=== PATIENT | female | born 1995 | race Caucasian/White ===

== ENCOUNTER 2016-09-14 10:37 | Emergency (ER) | payer MEDICAID ==
[2016-09-14 10:52] VITALS: BP 116/74
--- OUTSIDE RECORDS SUMMARY | 2016-09-14 11:09 | XMS REPORT | Continuity of Care Document ---
:1995 Author Organization [facility] ([facility]) [place] [address] Phone [phone] Care Team Providers Name Role Phone Emanuel Echols Primary Care Provider [phone] Source Comments This disclosure is being made pursuant to the Care Everywhere program, applicable federal and state laws, and may not contain all informaitonavailable regarding this patient.[facility] ([facility]) Active Allergies and Adverse Reactions No Active Allergies Current Medications Not on file Active Problems Not on file Social History Tobacco Use Types Packs/Day Years Used Date Never Assessed Last Filed Vital Signs Vital Sign Reading Time Taken Blood Pressure 123/67 12/22/2003 8:12 AM CDT Pulse 93 12/22/2003 8:12 AM CDT Temperature 36.4 C (97.52 F) 12/22/2003 8:12 AM CDT Respiratory Rate - - Height 1.235 m (4' 0.62") 12/22/2003 8:12 AM CDT Weight 32.496 kg (71 lb 10.2 oz) 12/22/2003 8:12 AM CDT Body Mass Index 21.31 12/22/2003 8:12 AM CDT Oxygen Saturation - - Plan of Care Health Maintenance Due Date Last Done Comments Hepatitis B Vaccine (1 of 3 - Primary Series) 1995 HPV Vaccine (1 of 3 - Female/Unknown 3 Dose Series) 2006 Tdap Vaccine 2006 Meningococcal Vaccine (1 of 1) 2011 Cervical Cancer Screening 2013 Lipid Disorder Screening 2013 MMR Vaccine 2013 Td Vaccine 2013 Varicella Vaccine (1 of 2 - Adult - No Evidence of 2013 Immunity) Influenza Vaccine: Seasonal (#1) 03/07/2016 Results from Last 3 Months Not on file
--- NOTE | 2016-09-14 11:13 | ERNOTE ---
Medical Problem HPI - Narrative Date of Service: 09/14/16 - General Chief Complaint: OB Screening Time Seen by Provider: 09/14/16 10:59 Source: patient, RN notes reviewed, old records Exam Limitations: no limitations - Immun/Allergies/Home Medications Immunizations: IMMUNIZATION HX Immunizations Up to Date Yes Allergies/Adverse Reactions: Allergies Sulfa (Sulfonamide Antibiotics) [Sulfa(Sulfonamide Antibiotics)] Allergy ( Verified 09/14/16 10:51) Home Medications: HOME MEDICATIONS NK [No Home Medication] 09/14/16 [Last Taken Unknown] - History of Present History Narrative: 21 y/o female patient of Dr. Perera ambulatory to the ED for related concerns. She reports that she has not been feeling the baby move for the past 2 weeks. She was seen for a visit on 09/08/16 and reported no concerns at that time. She did not contact her OB before coming here. She denies any other associated symptoms. Her FHT's were 162 in triage. Review of Systems - Review of Systems Constitutional: Absent: recent illness, fever, malaise EYE: Present: no symptoms reported ENT: Present: no symptoms reported Respiratory: Absent: shortness of breath, cough Cardiology: Absent: chest pain, syncope Gastrointestinal/Abdominal: Absent: vomiting, diarrhea, abdominal pain Genitourinary: Absent: discharge, other - vaginal bleeding Musculoskeletal: Present: no symptoms reported Skin: Present: no symptoms reported Neurological: Absent: headache, dizziness/light-headedness Endocrine: Present: no symptoms reported Hematologic/Lymphatic: Present: no symptoms reported Psych: Present: anxiety, depressed - Patient's Past Medical History Patient History - Medical: Bipolar Patient History - Cardiac/Respiratory: No pertinent hx Patient History - Cancer: No Hx of Cancer Patient History - Surgical Procedures: , Ear Tubes Patient History - Other: None LMP (females 10-50): LMP (Calendar): 05/10/16 - Social History Living Situations: home Psych History: Hx of Bipolar Disorder Does anyone smoke in the home?: No Smoking Status: Never smoker Have you smoked in the past 12 months: No Alcohol Use: none Drug Use: none - Immunizations Immunizations Up to Date: Yes Physical Exam - Physical Exam General Appearance: Present: wd/wn, alert, no apparent distress, obese, other - bizarre appearance Eye Exam: Normal inspection: bilateral Respiratory: Present: no respiratory distress, no accessory muscle use Extremity Exam: Present: normal inspection, no edema Neurological Exam: Present: alert, oriented, normal mood/affect Skin Exam: Present: normal color ED Progress - Vital Signs Patient's Vital Signs:: I have reviewed the patient's vital signs. Vital Signs: Vital Signs 09/14/16 09/14/16 10:44 10:59 Temperature 36 C L 36 C L Pulse Rate 81 81 Respiratory 12 12 Rate Blood Pressure 116/74 116/74 O2 Sat by Pulse 98 98 Oximetry - Progress/Reassessment Chief Complaint: OB Screening Progress:: Unchanged Plan - Plan Plan: Patient does not have any symptoms warranting further ED evaluation. Instructed to contact her OB about any related problems before coming to the ED. Departure - Departure Clinical Impression: Concern about complication without diagnosis Disposition: Home Follow Up Needed Condition: Stable Instructions: Second Trimester of , [id number] Additional Instructions: Contact Dr. Perera regarding your concerns Referrals: Zhang Perera DO [Staff Physician] -
== END 2016-09-14 11:06 | disposition home or self-care (01) ==
LOC: ER 10:37
DX: Z71.1 Person with feared health complaint in whom no diagnosis is made (principal); Z33.1 Pregnant state, incidental

== ENCOUNTER 2017-02-08 04:14 | Inpatient (IN) | payer MEDICAID ==
[2017-02-08] MEDS ORDERED: ceFAZolin SODIUM/DEXTROSE,ISO 2 GM/50 ML BAG IV ONE (05:26)
[2017-02-08] MEDS ORDERED: OXYTOCIN 20 UNITS in RINGERS SOLUTION,LACTATED 1,000 ML IV ONE (05:26)
[2017-02-08] MEDS: RINGERS SOLUTION,LACTATED 1,000 ML IV PRN ×2 (05:52→07:55)
[2017-02-08 06:04] LABS: Cocaine Ur Negative (NEGATIVE); Urine Barbiturate Negative (NEGATIVE); Urine Benzodiazepines Negative (NEGATIVE); Urine Opiates Negative (NEGATIVE); Urine PCP Negative (NEGATIVE); Urine THC Negative (NEGATIVE)
[2017-02-08 06:11] LABS: Hematocrit 33.7 % (37.0-47.0); Hemoglobin 11.5 gm/dL (12.5-16.0); Mean Cell Volume 81.6 fl (78-100); Mean Corpuscular Hemoglobin 27.8 pg (27-31); Mean Corpuscular Hgb Conc 34.1 g/dl (32-36); Neutrophil # 6.9 K/mm3 (1.3-6.0); Neutrophil % 64.6 % (42-75.0); Platelet Count 215 K/mm3 (150-450); Red Blood Count 4.13 M/mm3 (4.2-5.4); White Blood Count 10.7 K/mm3 (4.0-10.5)
[2017-02-08] MEDS ORDERED: SENNOSIDES 8.6 MG TABLET PO PRN (09:45)
[2017-02-08] MEDS ORDERED: RINGERS SOLUTION,LACTATED 1,000 ML IV ONE (09:45)
[2017-02-08] MEDS ORDERED: ONDANSETRON HCL/PF 2 MG/ML VIAL IV PRN (09:45)
[2017-02-08] MEDS ORDERED: diphenhydrAMINE HCL 25 MG CAPSULE PO PRN (09:45)
[2017-02-08] MEDS ORDERED: SIMETHICONE 80 MG TAB.CHEW PO PRN (09:45)
[2017-02-08] MEDS ORDERED: HYDROcodone/ACETAMINOPHEN 1 EACH TABLET PO PRN (09:45)
[2017-02-08] MEDS ORDERED: BISACODYL 10 MG SUPP.RECT RC PRN (09:45)
[2017-02-08] MEDS ORDERED: PROMETHAZINE HCL 12.5 MG in DEXTROSE 5 % IN WATER 50 ML IV PRN ×2 (09:45)
--- NOTE | 2017-02-08 09:45 | OR ---
Operative Report - Dictated Report Narrative: DATE OF PROCEDURE: 02/08/2017 PROCEDURE: 1. Repeat low transverse section ANESTHESIA: Spinal. PREOPERATIVE DIAGNOSES: 1. Intrauterine at 39 1/7 weeks 2. Previous c-sections x 1 POSTOPERATIVE DIAGNOSES: 1. Intrauterine at 39 1/7 weeks 2. Previous c-sections x 1 SURGEON: Perla Spencer M.D. DIRECTOR CORPORATE SALES: Nimisha Mcdonald FINDINGS: 1. Male infant in cephalic presentation. clear amniotic fluid. Weight 2389 g, 8/9, Time of delivery: 08:48 2. Normal uterus, and normal bilateral ovaries and tubes 3. There was some omentum adhesion to the right side of the peritoneal incision. SPECIMENS: placenta DRAIN: Hoffman to gravity. URINE OUTPUT: 150 ml. BLOOD LOSS: 200 ml. IV FLUIDS: 2000 ml COMPLICATIONS: None. Description of Operative Procedure: The patient consented prior to the operation and was taken to the operating room. Spinal anesthesia was performed without complications. The patient was then placed in the dorsal supine position with leftward tilt. Sequential compression device was placed on the lower extremities and a Hoffman catheter was placed into the bladder using sterile technique. Two grams of Ancef was given prior to the start of anesthesia. The abdomen was prepped with Chloraprep and draped in the usual sterile fashion. A time-out procedure was conducted to confirm the correct patient for the correct procedure. Anesthesia was tested and appeared adequate. A Pfannenstiel incision was marked slightly above her prior scar and then made with a scalpel. The incision was carried through the subcutaneous layer to the fascia. The fascia was nicked at the midline and extended laterally with Johnson scissors. The upper edge of the fascia incision was grasped with two Saw clamps, elevated, and the underlying rectus muscles were dissected off. The Saw clamps were repositioned to the lower edge of the fascia incision, which was tented up and dissected off from the rectus muscles. The rectus muscles were held up with Allis clamps and the midline between the rectus muscles was dissected sharply with the scalpel. The peritoneum was entered sharply with a scalpel. The peritoneal incision was extended superiorly and inferiorly with good visualization of the bladder. There was some omentum adhesion to the right side of the peritoneal incision. This was left alone as it was not interfering with the procedure. A bladder blade was inserted. The vesicouterine peritoneum was identified, grasped with a smooth pick-ups, and entered sharply with Matzenbaum scissors. The incision was extended laterally, and a bladder flap was created. The bladder blade was repositioned. The lower uterine segment was incised in a transverse fashion with the scalpel. The incision was extended laterally by stretching. The bladder blade was removed. The amniotic sac was ruptured with clear fluid. The baby was in cephalic presentation. The head was elevated through the incision. Fundal pressure was applied and the baby was delivered atraumatically. Baby cried immediately after . The cord was clamped and cut. The baby was handed off to the right of way agent and nurse in attendance. Cord blood was obtained. The placenta was removed manually. The uterus was exteriorized, and cleared off clots and membrane. The uterine incision was closed with 0 vicryl in a running-lock fashion. A second imbricating layer was placed with 2-0 Vicryl in a continuous non-lock fashion. Good hemostasis and reapproximation were obtained. The posterior cul-de-sac was cleared off clots and fluid. The uterus was returned to the abdomen. The gutters were cleared of blood clots and fluid. The peritoneum was closed with 2-0 Vicryl. The rectus muscle was inspected and found hemostatic. The fascia was reapproximated with #1 Vicryl in running fashion. The subcutaneous layer was irrigated with saline. The subcutaneous layer was closed with 2-0 vicryl interruptedly. The skin was closed with 3-0 Monocryl suture in a subcuticular fashion. Benzoin was applied to the incision edges. The incision was covered with Steri strips, Telfa, ABD and adhesive pressure dressing tape. The patient tolerated the procedure well. Sponge, lap, needle and instrument counts were correct x 2. The patient received an abdominal tap block under u/s guidance by anesthesia for postop pain management. The patient was taken to the recovery room in stable condition. Perla Spencer MD History for MU Definition: * The number of deliveries resulting in a live the patient experienced prior to current hospitalization * The previous delivery of live twins or any live multiple gestation is considered one live event. *If primagravida or nulliparous is documented select zero for the number of previous live births. Live Events: 1
[2017-02-08] MEDS: IBUPROFEN 800 MG TABLET PO PRN ×2 (12:18→18:42)
[2017-02-08] MEDS: HYDROcodone/ACETAMINOPHEN 1 EACH TABLET PO PRN ×4 (12:19→21:42)
[2017-02-08] MEDS: DOCUSATE SODIUM 100 MG CAPSULE PO SCH (20:54)
[2017-02-09] MEDS: HYDROcodone/ACETAMINOPHEN 1 EACH TABLET PO PRN ×2 (03:22→11:13)
[2017-02-09] MEDS: IBUPROFEN 800 MG TABLET PO PRN ×2 (03:23→11:13)
[2017-02-09 06:16] LABS: Hematocrit 29.1 % (37.0-47.0); Hemoglobin 9.7 gm/dL (12.5-16.0); Mean Cell Volume 83.1 fl (78-100); Mean Corpuscular Hemoglobin 27.7 pg (27-31); Mean Corpuscular Hgb Conc 33.3 g/dl (32-36); Mean Platelet Volume 9.7 fl (6.0-9.5); Neutrophil # 9.4 K/mm3 (1.3-6.0); Neutrophil % 79.1 % (42-75.0); Platelet Count 181 K/mm3 (150-450); Red Cell Distribution Width 14.4 % (11.5-14.0); White Blood Count 11.8 K/mm3 (4.0-10.5)
--- NOTE | 2017-02-09 08:49 | PN ---
Subjective - Date and Time Seen Date: 02/09/17 Subjective Narrative: post op day 1, s/p repeat c/s doing fine. izaguirre out and voided. ambulating and tolerating diet. bottle feeding. normal lochia. wants to be discharged today as baby will have to be transferred to [facility] for susptected bowel obstruction. Objective - Vitals Vitals: Last Vital Signs Temp 36.9 C 02/09/17 07:25 Pulse 84 02/09/17 07:25 Resp 18 02/09/17 07:25 BP 129/71 02/09/17 07:25 Pulse Ox 99 02/09/17 07:25 - Abnormal Lab Findings Abnormal Lab Findings: Abnormal Lab Results 02/09/17 Range/Units 06:13 WBC 11.8 H (4.0-10.5) K/mm3 RBC 3.50 L (4.2-5.4) M/mm3 Hgb 9.7 L (12.5-16.0) gm/dL Hct 29.1 L (37.0-47.0) % RDW 14.4 H (11.5-14.0) % MPV 9.7 H (6.0-9.5) fl Immature Gran % (Auto) 0.70 H (0.001-0.429) % Immature Gran # (Auto) 0.08 H (0.000-0.0310) K/mm3 Neutrophils % 79.1 H (42-75.0) % Lymphocytes % 14.5 L (20-51) % Neutrophils # 9.4 H (1.3-6.0) K/mm3 - Exam Constitutional: Present: Oriented x3, Cooperative Respiratory: Present: no respiratory distress Cardiovascular/Chest: Present: normal peripheral pulses Abdomen: Present: soft, nondistended, other - fundus firm at the umbilicus. Incision dry and clean. Extremity: Present: normal range of motion, no calf tenderness, pedal edema Eye contact: Present: cooperative, good eye contact, normal speech Cauti Physician Documentation - Urinary Catheter Management Urethral (Izaguirre) Date of Insertion: 02/08/17 Time of Insertion: 08:10 Date of Removal: 02/08/17 Time of Removal: 21:11 Assessment/Plan Plan Narrative: A: POD#1, s/p repeat c/s, stable and well. Plan: can be discharged home later today to go to [facility] with baby if remaining stable and well. discharge instructions given. Perla Spencer MD
[2017-02-09] MEDS: DOCUSATE SODIUM 100 MG CAPSULE PO SCH (11:15)
[2017-02-09 14:10] VITALS: BP 130/70
== END 2017-02-09 14:53 | disposition home or self-care (01) | DRG 766 ==
LOC: MS 04:14
PROVIDERS: ADMIT Obstetrics & Gynecology; ATTEND Obstetrics & Gynecology
PROC: 4A1HXCZ Monitoring of Products of Conception, Cardiac Rate, External Approach (ICD-10-PCS; 2017-02-08)
PROC: 10D00Z1 Extraction of Products of Conception, Low, Open Approach (ICD-10-PCS; principal; 2017-02-08 08:00)
DX: O82 Encounter for cesarean delivery without indication (principal); Z3A.39 39 weeks gestation of pregnancy; Z37.0 Single live birth

== ENCOUNTER 2018-09-18 05:20 | Inpatient (IN) ==
[2018-09-18] MEDS ORDERED: ceFAZolin SODIUM/DEXTROSE,ISO 2 GM/50 ML BAG IV ONE (05:29)
[2018-09-18] MEDS ORDERED: RINGER'S SOLUTION,LACTATED 1,000 ML IV PRN (05:29)
[2018-09-18] MEDS ORDERED: OXYTOCIN 20 UNITS in RINGER'S SOLUTION,LACTATED 1,000 ML IV ONE (05:29)
[2018-09-18 05:48] LABS: Hematocrit 35.1 % (37.0-47.0); Hemoglobin 11.6 gm/dL (12.5-16.0); Mean Corpuscular Hemoglobin 27.1 pg (27-31); Mean Platelet Volume 9.3 fl (8-12.5); Neutrophil # 6.5 K/mm3 (1.3-6.0); Neutrophil % 64.8 % (42-75.0); Platelet Count 263 K/mm3 (150-450); Red Blood Count 4.28 M/mm3 (4.2-5.4); Red Cell Distribution Width 13.6 % (11.5-14.0); White Blood Count 10.1 K/mm3 (4.0-10.5)
[2018-09-18 06:30] LABS: Cocaine Ur Negative (NEGATIVE); Urine Barbiturate Negative (NEGATIVE); Urine Benzodiazepines Negative (NEGATIVE); Urine Opiates Negative (NEGATIVE); Urine PCP Negative (NEGATIVE); Urine THC Negative (NEGATIVE)
[2018-09-18] MEDS: RINGER'S SOLUTION,LACTATED 1,000 ML IV PRN ×2 (07:00→09:57)
--- NOTE | 2018-09-18 07:11 | ANES ---
Anesthesia Pre Procedure Eval Vitals/Labs: Last Vital Signs Temp 37.1 C 09/18/18 06:38 Pulse 81 09/18/18 06:38 Resp 18 09/18/18 06:38 BP 122/73 09/18/18 06:38 Pulse Ox 98 09/18/18 06:38 HOME MEDICATIONS vitamin,calcium,rnpzqeha-fvur-vkaob acid tablet 1 tab PO DAILY 02/19/18 [Last Taken 09/17/18 08:00] Allergies/Adverse Reactions: Allergies Allergy/AdvReac Type Severity Reaction Status Date / Time Sulfa (Sulfonamide Allergy rash Verified 09/18/18 05:29 Antibiotics) [Sulfa(Sulfonamide Antibiotics)] - Planned Procedure Planned Procedure: Repeat Section poss abdominal scar revisi Medication List Reviewed:: Yes Allergies Verified: Yes Medical History (Last Reviewed 09/18/18 @ 07:10 by Kurt Rodriguez CRNA) depression (Acute) Onset Date: 10/31/12 Bipolar disorder (Acute) Onset Date: 06/01/13 Anemia affecting Onset Date: 05/2012 Chronic otitis externa Onset Date: Unknown Depression Drug overdose Onset Date: ~2010 Spontaneous Onset Date: 12/18/17 Surgical History (Last Reviewed 09/18/18 @ 07:10 by Kurt Rodriguez CRNA) History of myringotomy Onset Date: Unknown w/ tubes 7-8 sets of tubes Hx of section Onset Date: 07/16/12 NR FHTs, 2012, rpt 2016 Family History (Last Reviewed 09/18/18 @ 07:10 by Kurt Rodriguez CRNA) Mother Alive and well Uncle Lung cancer Bone cancer Aunt Breast cancer maternal great aunt Brother Muscular dystrophy - Family Anesthesia History Family History:: no untoward family reactions to anesthesia - Airway/Neck/Teeth Within Normal Limits:: Yes Teeth Condition: missing Neck Exam: full range of motion Mallampatti Score: 1 Thyromental (T-M) distance: > 6 cm Mandibulo Hyoid distance: > 3 cm - Respiratory Respiratory Physical: lungs clear Smoking Status: Never smoker Sleep Apnea currently treated: No Sleep Apnea by current assessment: No - Cardiovascular Tolerate Activity: Good Heart Sounds: S1 & S2, Regular - Anesthesia Assessment and Plan ASA Class: PS, II Anesthesia Type Plan: Spinal - Bilat TAP block for postop analgesia
--- NOTE | 2018-09-18 10:13 | OR ---
Operative Report - Dictated Report Narrative: DATE OF PROCEDURE: 09/18/2018 PROCEDURE: 1. Repeat low transverse section and lysis of adhesions (30 min) 2. Abdominal scar revision ANESTHESIA: Spinal. PREOPERATIVE DIAGNOSES: 1. Intrauterine at 39 3/7 weeks 2. Previous c-sections x 2 POSTOPERATIVE DIAGNOSES: 1. Intrauterine at 39 3/7 weeks 2. Previous c-sections x 2 3. Dense adhesions involving omentum to anterior abdominal wall and bladder to the lower uterine segment SURGEON: Perla Spnecer M.D. SOLID WASTE ENGINEER: Genesis Zuniga FINDINGS: 1. male in cephalic presentation. clear amniotic fluid. Weight pending 2642 g, 8/9, Time of delivery: 08:45 2. Normal uterus, and normal bilateral ovaries and tubes SPECIMENS: 1) placenta; 2) abdominal scar DRAIN: Hoffman to gravity. URINE OUTPUT: 100 ml. BLOOD LOSS: 400 ml. IV FLUIDS: 2200 ml COMPLICATIONS: None. Description of Operative Procedure: The patient consented prior to the operation and was taken to the operating room. Spinal anesthesia was performed without complications. The patient was then placed in the dorsal supine position with leftward tilt. Sequential compression device was placed on the lower extremities and a Hoffman catheter was placed into the bladder. Two grams of Ancef was given prior to the start of anesthesia. The abdomen was prepped with Chloraprep and draped in the usual sterile fashion. A time-out procedure was conducted to confirm the correct patient for the correct procedure. Anesthesia was tested and appeared adequate. The previous Pfannenstiel skin incision scar was removed with a scalpel. The incision was carried through the subcutaneous layer to the fascia. The fascia was nicked at the midline and extended laterally with Johnson scissors. The upper edge of the fascia incision was grasped with two Saw clamps, elevated, and the underlying rectus muscles were dissected off. The Saw clamps were repositioned to the lower edge of the fascia incision, which was tented up and dissected off from the rectus muscles. Dense adhesions were noted here. The rectus muscles was dissected sharply and . The peritoneum was entered sharply with a scalpel. The peritoneal incision was extended superiorly and inferiorly with good visualization of the bladder. A bladder blade was inserted. The vesicouterine peritoneum was identified and entered sharply with a scalpel and dissected with a Matzenbaum scissors. The incision was extended laterally, and a bladder flap was created. The bladder blade was repositioned. The lower uterine segment was incised in a transverse fashion with the scalpel. The incision was extended laterally by stretching. The bladder blade was removed. The amniotic sac was ruptured with clear fluid. The baby was in cephalic presentation. The head was elevated through the incision. Fundal pressure was applied and the baby was delivered atraumatically. Baby cried immediately after . The cord was clamped and cut. The baby was handed off to the pediatric orthodontist and nurse in attendance. Cord blood was obtained. The placenta was removed manually. The uterus was exteriorized, and cleared off clots and membrane. The uterine incision was closed with 0 vicryl in a running-lock fashion. A second layer with 2-0 vicry suture was placed continuously. Good hemostasis and reapproximation were obtained. The posterior cul-de-sac was cleared off clots and fluid. The uterus was returned to the abdomen. The gutters were cleared of blood clots and fluid. The peritoneum was closed with 2-0 Vicryl. The rectus muscle was inspected and found hemostatic. The fascia was reapproximated with #1 Vicryl in running fashion. The subcutaneous layer was irrigated with saline. The subcutaneous layer was closed with 2-0 vicryl interruptedly. The skin was closed with 3-0 Monocryl suture in a subcuticular fashion. Benzoin was applied to the incision edges. The incision was covered with Steri strips, Telfa, ABD and adhesive pressure dressing tape. The patient tolerated the procedure well. Sponge, lap, needle and instrument counts were correct x 2. The patient was taken to the recovery room in stable condition. Perla Spencer MD History for MU Definition: * The number of deliveries resulting in a live the patient experienced prior to current hospitalization * The previous delivery of live twins or any live multiple gestation is considered one live event. *If primagravida or nulliparous is documented select zero for the number of previous live births. Live Events: 2
[2018-09-18] MEDS ORDERED: ONDANSETRON HCL/PF 2 MG/ML VIAL IV PRN (10:19)
[2018-09-18] MEDS ORDERED: SIMETHICONE 80 MG TAB.CHEW PO PRN (10:19)
[2018-09-18] MEDS ORDERED: diphenhydrAMINE HCL 25 MG CAPSULE PO PRN (10:19)
[2018-09-18] MEDS ORDERED: BISACODYL 10 MG SUPP.RECT RC PRN (10:19)
[2018-09-18] MEDS ORDERED: SENNOSIDES 8.6 MG TABLET PO PRN (10:19)
[2018-09-18] MEDS: KETOROLAC TROMETHAMINE 30 MG/ML VIAL IV PRN ×2 (10:36→17:02)
[2018-09-18] MEDS: oxyCODONE HCL/ACETAMINOPHEN 1 TAB TABLET PO PRN ×4 (10:56→23:47)
--- NOTE | 2018-09-18 10:59 | ANES ---
Post Anesthesia Discharge - Transfer of Care Transfer of Care handoff given to nurse: Yes - Discharge from PACU Discharge from PACU when meets criteria: Yes - Anesthesia Post Op Note Anesthesia Post Op Note: TAP block procedure aborted due to uncooperative pt.
--- NOTE | 2018-09-18 11:02 | ANES ---
Post Anesthesia Assessment - Vital Signs Vitals: Last Vital Signs Temp 36.3 C 09/18/18 10:30 Pulse 101 H 09/18/18 10:30 Resp 20 09/18/18 10:30 BP 119/81 09/18/18 10:30 Pulse Ox 96 09/18/18 10:20 Airway Patency: Normal - Mental Status Level Of Consciousness: Inappropriate - Pain Level Pain Score: 5 - N/V Assessment Nausea/Vomiting Presence: Nauseated Dehydration:: No
[2018-09-18] MEDS: DOCUSATE SODIUM 100 MG CAPSULE PO SCH (22:20)
[2018-09-18] MEDS: IBUPROFEN 800 MG TABLET PO PRN (23:48)
[2018-09-19] MEDS: IBUPROFEN 800 MG TABLET PO PRN ×2 (06:00→13:49)
[2018-09-19] MEDS: oxyCODONE HCL/ACETAMINOPHEN 1 TAB TABLET PO PRN ×4 (06:00→19:20)
[2018-09-19] MEDS: DOCUSATE SODIUM 100 MG CAPSULE PO SCH ×2 (09:43→20:52)
--- NOTE | 2018-09-19 17:09 | PN ---
Subjective - Date and Time Seen Date: 09/19/18 Subjective Narrative: post op day 1, s/p repeat c/s doing well. voiding and ambulating well. pain controlled. bottle feeding. normal lochia. Objective - Vitals Vitals: Last Vital Signs Temp 37.3 C 09/19/18 14:39 Pulse 73 09/19/18 14:39 Resp 20 09/19/18 14:39 BP 122/74 09/19/18 14:39 Pulse Ox 99 09/19/18 14:39 - Exam Constitutional: Present: Alert, Oriented x3, Cooperative Abdomen: Present: soft, nondistended, other - incision dry with steri strip and intact. Extremity: Present: no pedal edema, no calf tenderness Skin Exam: Present: normal color, warm/dry, no cyanosis Appearance: Present: appropriate appearance Eye contact: Present: cooperative, good eye contact, normal speech Cauti Physician Documentation - Urinary Catheter Management Urethral (Hoffman) Date of Insertion: 09/18/18 Time of Insertion: 08:10 Date of Removal: 09/18/18 Time of Removal: 22:00 Assessment/Plan Plan Narrative: A: post op day 1, s/p repeat c/s, stable and well. Plan: routine care. ambulation encouraged. Perla Spencer MD
[2018-09-20] MEDS: oxyCODONE HCL/ACETAMINOPHEN 1 TAB TABLET PO PRN ×4 (07:26→19:55)
[2018-09-20] MEDS: IBUPROFEN 800 MG TABLET PO PRN ×3 (07:27→19:09)
[2018-09-20] MEDS: DOCUSATE SODIUM 100 MG CAPSULE PO SCH ×3 (07:30→20:00)
--- NOTE | 2018-09-20 18:52 | PN ---
Subjective - Date and Time Seen Date: 09/20/18 Subjective Narrative: post op day 2, s/p repeat c/s no complaints. pain controlled. bottle feeding. normal lochia. Objective - Vitals Vitals: Last Vital Signs Temp 36.5 C 09/20/18 16:30 Pulse 66 09/20/18 16:30 Resp 18 09/20/18 16:30 BP 118/79 09/20/18 16:30 Pulse Ox 99 09/20/18 16:30 - Exam Constitutional: Present: Alert, Oriented x3, Cooperative Abdomen: Present: soft, nondistended, other - incision rash with erythema and a blister on the left side, likely due to steri strip allergy. steri strips removed. Incision covered with demabond. triamcinolone cream to local area. Extremity: Present: normal range of motion, no pedal edema, no calf tenderness Skin Exam: Present: normal color, warm/dry, no cyanosis Appearance: Present: appropriate appearance Eye contact: Present: cooperative, good eye contact, normal speech Cauti Physician Documentation - Urinary Catheter Management Urethral (Hoffman) Date of Insertion: 09/18/18 Time of Insertion: 08:10 Date of Removal: 09/18/18 Time of Removal: 22:00 Assessment/Plan Plan Narrative: A: post op day 2, s/p repeat c/s with incision rash due to steri strip. Plan: steri strips removed. incision covered with demabond. triamcinolone cream applied to incision area bid. Perla Spencer MD
[2018-09-20] MEDS: TRIAMCINOLONE ACETONIDE 15 APPL TUBE TP SCH (20:00)
[2018-09-21] MEDS: TRIAMCINOLONE ACETONIDE 15 APPL TUBE TP SCH (07:43)
[2018-09-21] MEDS: DOCUSATE SODIUM 100 MG CAPSULE PO SCH (07:43)
[2018-09-21 09:01] VITALS: BP 126/70
--- NOTE | 2018-09-21 13:43 | PN ---
Subjective - Date and Time Seen Date: 09/21/18 Subjective Narrative: post op day 3, s/p repeat c/s. doing well. incisional rash improved with the use of triamcinolone ointment. denies complaints. Objective - Vitals Vitals: Last Vital Signs Temp 36.3 C 09/21/18 07:45 Pulse 73 09/21/18 07:45 Resp 18 09/21/18 07:45 BP 126/70 09/21/18 07:45 Pulse Ox 98 09/21/18 07:45 - Exam Constitutional: Present: Alert, Oriented x3, Cooperative Abdomen: Present: soft, nondistended, other - incisional rash improved, less erythematous and the blister area on the left got smaller. incision otherwise healing well, with dermabond covering Extremity: Present: no pedal edema, no calf tenderness Skin Exam: Present: normal color, warm/dry, no cyanosis Appearance: Present: appropriate appearance Eye contact: Present: cooperative, good eye contact, normal speech Cauti Physician Documentation - Urinary Catheter Management Urethral (Hoffman) Date of Insertion: 09/18/18 Time of Insertion: 08:10 Date of Removal: 09/18/18 Time of Removal: 22:00 Assessment/Plan Plan Narrative: A: post op day 3, s/p repeat c/s, stable and well, incisional rash improving. Plan: will discharge home today. Perla Spencer MD
== END 2018-09-21 16:00 | disposition home or self-care (01) | DRG 788 ==
LOC: OB 05:20 → MS 09-19 14:36
PROVIDERS: ADMIT Obstetrics & Gynecology; ATTEND Obstetrics & Gynecology
CPT/HCPCS: 36415; 59025; 64486; 80307; 85025; 86850; 86900; 88305; 88307; C1765